=== PATIENT | female | born 1955 | race Caucasian/White ===

== ENCOUNTER 2021-08-05 08:28 | Inpatient (IN) ==
[2021-08-05 08:33] VITALS: BMI 19.0
[2021-08-05 08:50] LABS: ABG HCO3 21.8 mmol/L (22-26)
[2021-08-05 08:51] LABS: ABG ALLEN TEST POS
--- NOTE | 2021-08-05 08:57 | DR.SOBA ---
HPI Time Seen Time Seen by Provider: 08/05/21 08:57 Primary Care Physician Primary Care Physician: KAYLI HPI Comment HPI Comment: PATIENT IS 66YR OLD FEMALE IN ER WITH INCREASING SOB TIMES ONE WEEK. STARTED AFTER STRESS TEST WAS DONE. TODAY IN HER DOCTORS OFFICE, O2 SAT WAS LOW. SHE WAS SENT TO ER. PATIENT HAVE CHEST TIGHTNESS. PATIENT HAVE HISTORY OF COPD AND CHF. Complaints Chief Complaint Doctors Comments: INCREASING SOB TIMES ONE WEEK. Chief Complaint:: PT C/O SHORTNESS OF BREATH. PATIENT STATES SHE HAD A STRESS TEST LAST WEEK AND SHE HAS BEEN HAVING SHORTNESS OF BREATH SINCE. PATIENT STATES SHE WAS SENT OVER FROM PCP BECAUSE OF HAVING LOW SPO2. PATIENT STATES SHE WAS SCHEDULED FOR ECHO TODAY. COVID-19 Coronavirus risk:travel/contact w/high risk person: No Has patient experienced Coronavirus symptoms: No Reviewed Nurses Notes Reviewed: Yes Source History Provided: Patient Mode of Arrival Mode of Arrival: Ambulatory Timing Onset of Chief Complaint: 07/29/21 Duration Duration: Days Context Onset:: At Rest History of:: COPD and CHF Currently on:: Inhaled Bronchodilators Prehospital Care:: Injected B2 Modifying Factors Worsens:: Exertion and Lying Flat Improves:: Rest and Sitting Up Associated Signs and Symptoms Associated Signs and Symptoms: Wheeze, Cough, Nasal Congestion and Chest Pain If Chest Pain Quality: Pleuritic Location: Substernal If Cough Cough: Nonproductive PMH PMH Past Medical History: Yes Past Medical History: Anxiety, CHF, COPD, Dyslipidemia, Hypertension and [place] Past Medical History Comment: RLS, Past Surgical History: Yes Surgical History: Hysterectomy Past Surgical History Comment: EYE SURGERY Family History History of Family Medical Conditions: No Social History Does any household member use tobacco: No Alcohol Use: None Do you use any recreational Drugs:: No Lives With: Family Lives Where: Home Travel Risk Coronavirus risk:travel/contact w/high risk person: No Has patient experienced Coronavirus symptoms: No Infectious screening In the last 2 months have you had wt loss of >10#?: NO Have you had fever, night sweats or hemotysis?: No Have you traveled outside the country in the last 6 months?: No Isolation: Standard ROS Review of Systems Constitutional: See HPI, Weakness and Fatigue; negative Fever Eyes: No Symptoms Reported and See HPI ENTM: See HPI, Nose Discharge and Nose Congestion Respiratoy: See HPI, Non-Productive Cough, Short of Breath and Wheezing Cardiovascular: No Symptoms Reported, See HPI and Chest Pain Gastrointestinal/Abdominal: No Symptoms Reported and See HPI; negative Abdominal Pain, Diarrhea and Vomiting Genitourinary: No Symptoms Reported and See HPI; negative Dysuria, Frequency and Hematuria Neurological: See HPI and Weakness; negative Headache and Dizziness Musculoskeletal: No Symptoms Reported and See HPI; negative Back Pain and Muscle Pain Integumentary: No Symptoms Reported and See HPI; negative Change in Color, Rash and Juandice Hematologic/Lymphatic: No Symptoms Reported and See HPI; negative Easy Bruising Endocrine: No Symptoms Reported and See HPI; negative Increased Thirst and Increased Urine Psychiatric: No Symptoms Reported and See HPI All Other Systems: Reviewed and Negative PE Vital Signs Vitals: Temperature 98.8 F Pulse Rate 103 Respiratory Rate 33 Blood Pressure 111/58 O2 Sat by Pulse Oximetry 96 General Limitations: No Limitations General Appearance: Alert and In Distress Head Head Exam: Normal Inspection, Atraumatic and Normocephalic Eyes Eye exam: Normal Appearance; negative Scleral Icterus and Conjunctival Injection ENT ENT Exam: Normal Exam, Normal Oropharynx, Normal External Ear Exam and TM's Normal Bilaterally Neck Neck Exam: Normal Inspection and Trachea Midline; negative Tenderness and Lymphadenopathy Chest Chest Inspection: Normal Inspection and Symmetric Chest Wall Rise; negative Tenderness Respiratory Respiratory Exam: Normal Lung Sounds Bilat; negative Accessory Muscle Use, Chest Wall Tenderness and Respiratory Distress Respiratory Exam: Bilateral: Rhonchi and Lower: Rhonchi Cardiovascular Cardiovascular Exam: Regular Rate, Normal Rhythm and Normal Heart Sounds; negative Systolic Murmur and Diastolic Murmur Abdominal Exam Abdominal Exam: Normal Inspection, Normal Bowel Sounds and Soft; negative Tenderness Extremities Extremities Exam: Normal Inspection and Normal Capillary Refill Back Back Exam: Normal Inspection; negative (R) CVA Tenderness and (L) CVA Tenderness Neurologic Neurological Exam: Alert and Oriented X3; negative Motor Sensory Deficit Psychiatric Psychiatric Exam: Normal Affect and Normal Mood Skin Skin Exam: Warm, Dry, Intact and Normal Color MDM Differential Diagnosis Differential Diagnosis: Bronchitis, CHF, COPD, Hyponatremia, Mycardial Infarction, Pneumonia, Pneumothorax, Respiratory Insufficiency, Sinusitis and URI COURSE Treatment Treatment: SEE ORDERS. PATIENT IN ER WITH INCREASING SOB AND COUGH. HAD STESS TEST DONE LACT WEEK AND IS HAVING SOB SINCE. GETTING WORSE. O2 SAT WAS LOW IN PCP OFFICE AND WAS SENT TO ER. XRAY REPORT INDICATE PNEUMONIA WITH HYPOXIA. SHE IS BEING AGMITTED TO HOSPITAL FOR FURTHER MANAGEMENT. CEFTAZIDINE IGM IVPB IN ER. Consultation Consultation Comments: DISCUSSED PATIENT WITH DR. ARAIZA. HE WILL ADMIT PATIENT. Education/Counseling Education/Counseling: Patient Educated On: Diagnosis ROR Labs Reviewed Laboratory Results Reviewed?: Yes Result Diagrams: 08/05/21 09:00 08/05/21 09:00 Laboratory: WBC 10.2 X10^3/uL (3.6-10.0) H 08/05/21 09:00 RBC 4.04 X10^6/uL (3.5-5.4) 08/05/21 09:00 Hgb 12.4 g/dL (12.0-16.0) 08/05/21 09:00 Hct 35.5 % (36.0-47.0) L 08/05/21 09:00 MCV 87.7 fL (80.0-100.0) 08/05/21 09:00 MCH 30.7 pg (27.0-34.0) 08/05/21 09:00 MCHC 35.0 g/dL (33.0-35.0) 08/05/21 09:00 RDW 12.8 % (11.6-16.5) 08/05/21 09:00 Plt Count 396 X10^3/uL (150.0-450.0) 08/05/21 09:00 MPV 7.0 fL (7.4-11.0) L 08/05/21 09:00 Neut % (Auto) 81.6 % (42.0-75.0) H 08/05/21 09:00 Lymph % (Auto) 5.9 % (21.0-51.0) L 08/05/21 09:00 [place] % (Auto) 11.2 % (0.0-13.0) 08/05/21 09:00 Eos % (Auto) 0.8 % (0.9-2.9) L 08/05/21 09:00 Baso % (Auto) 0.5 % (0.2-1.0) 08/05/21 09:00 Neut # (Auto) 8.3 x10^3/uL (2.2-4.8) H 08/05/21 09:00 Lymph # (Auto) 0.6 X10^3/uL (1.3-2.9) L 08/05/21 09:00 [place] # (Auto) 1.1 x10^3/uL (0.3-0.8) H 08/05/21 09:00 Eos # (Auto) 0.1 x10^3/uL (0.0-0.2) 08/05/21 09:00 Baso # (Auto) 0.0 X10^3/uL (0.0-0.1) 08/05/21 09:00 Absolute Nucleated RBC 0.1 /100WBC 08/05/21 09:00 PT 13.6 SECONDS (11.8-14.3) 08/05/21 09:00 INR Target Range - 08/05/21 09:00 INR 1.10 (0.8-1.3) 08/05/21 09:00 APTT 35.3 SECONDS (22.9-36.5) 08/05/21 09:00 PTT Comment - 08/05/21 09:00 Sample Site Rr 08/05/21 08:45 ABG pH 7.470 (7.35-7.45) H 08/05/21 08:45 ABG pCO2 30.0 mmHg (35.0-45.0) L 08/05/21 08:45 ABG pO2 54.0 mmHg (80.0-100.0) L 08/05/21 08:45 ABG HCO3 21.8 mmol/L (22-26) L 08/05/21 08:45 ABG O2 Saturation 90.0 % (90-100) 08/05/21 08:45 ABG Base Excess -1.0 mmol/L (-2.0-2.0) 08/05/21 08:45 Jose Juan Test Pos 08/05/21 08:45 A-a Gradient 58.0 mmHg 08/05/21 08:45 FiO2 21.0 08/05/21 08:45 Blood Gas Comments Wes well cb 08/05/21 08:45 Sodium 131 mmol/L (136-145) L 08/05/21 09:00 Corrected Sodium TNP 08/05/21 09:00 Potassium 4.0 mmol/L (3.5-5.1) 08/05/21 09:00 Chloride 95 mmol/L (98-107) L 08/05/21 09:00 Carbon Dioxide 24.5 mmol/L (21-32) 08/05/21 09:00 BUN 10 mg/dL (7-18) 08/05/21 09:00 Creatinine 0.85 mg/dL (0.55-1.02) 08/05/21 09:00 Est GFR (MDRD) Af Amer > 60 (>60) 08/05/21 09:00 Est GFR (MDRD) Non-Af > 60 (>60) 08/05/21 09:00 Glucose 101 mg/dL (65-99) H 08/05/21 09:00 Calcium 9.3 mg/dL (8.5-10.1) 08/05/21 09:00 Corrected Calcium 10.3 mg/dL (8.5-10.1) H 08/05/21 09:00 Magnesium 2.0 mg/dL (1.7-2.9) 08/05/21 09:00 Total Bilirubin 0.60 mg/dL (0.2-1.0) 08/05/21 09:00 AST 17 Units/L (15-37) 08/05/21 09:00 ALT 13 Units/L (12-78) 08/05/21 09:00 Alkaline Phosphatase 81 Units/L (46-116) 08/05/21 09:00 Creatine Kinase 42 Units/L (26-192) 08/05/21 09:00 CK-MB (CK-2) < 1.0 ng/mL (0-4.0) 08/05/21 09:00 CK/CKMB % Calc 2.4 % (<4) 08/05/21 09:00 Troponin I < 0.02 ng/mL (0-1.5) 08/05/21 09:00 B-Natriuretic Peptide 61.6 pg/mL (0-79) 08/05/21 09:00 Total Protein 7.4 g/dL (6.4-8.2) 08/05/21 09:00 Albumin 2.8 g/dL (3.4-5.0) L 08/05/21 09:00 Globulin 4.6 g/dL (2.5-4.5) H 08/05/21 09:00 Albumin/Globulin Ratio 0.6 Ratio (1.1-2.1) L 08/05/21 09:00 SARS-CoV-2 (PCR) Negative (NEGATIVE) 08/05/21 10:06 Influenza Type A (PCR) Negative (NEGATIVE) 08/05/21 10:06 Influenza Type B (PCR) Negative (NEGATIVE) 08/05/21 10:06 RSV (PCR) Negative (NEGATIVE) 08/05/21 10:06 XRAY XRAY Interpreted by: Radiologist (REPORT NOTED AND DISCUSSED WITH PATIENT.) and Self EKG Rate: 103 [place]: Normal Rhythm: NSR and PVCs Block: None Hypertrophy: None ST: Old, Ischemia and Infarct Opioid Opioid Risk Tool Age (Vinh box if 16-45): No History of Preadolescent Sexual Abuse: No Total: 0 Total Score Risk Category: Low Risk Copyright: Michele GUARDADO predicting aberrant behaviors Diagnosis Discharge Problem: Pneumonia Qualifiers: Pneumonia type: due to unspecified organism Laterality: bilateral Lung location: unspecified part of lung Qualified Code(s): J18.9 - Pneumonia, unspec ified organism COPD (chronic obstructive pulmonary disease) Qualifiers: COPD type: COPD with acute exacerbation Qualified Code(s): J44.1 - Chronic obstructive pulmonary disease with (acute) exacerbation Instructions Forms: Precautions for COVID19 [facility] Social Distancing
[2021-08-05 09:17] LABS: BASOPHILS % (AUTO) 0.5 % (0.2-1.0); EOSINOPHILS # (AUTO) 0.1 x10^3/uL (0.0-0.2); EOSINOPHILS % (AUTO) 0.8 % (0.9-2.9); HEMATOCRIT 35.5 % (36.0-47.0); HEMOGLOBIN 12.4 g/dL (12.0-16.0); LYMPHOCYTES # (AUTO) 0.6 X10^3/uL (1.3-2.9); LYMPHOCYTES % (AUTO) 5.9 % (21.0-51.0); MEAN CORPUSCULAR HEMOGLOBIN 30.7 pg (27.0-34.0); MEAN CORPUSCULAR VOLUME 87.7 fL (80.0-100.0); MONOCYTES # (AUTO) 1.1 x10^3/uL (0.3-0.8); MONOCYTES % (AUTO) 11.2 % (0.0-13.0); NEUTROPHILS # (AUTO) 8.3 x10^3/uL (2.2-4.8); NEUTROPHILS % (AUTO) 81.6 % (42.0-75.0); PLATELET COUNT 396 X10^3/uL (150.0-450.0); RED BLOOD COUNT 4.04 X10^6/uL (3.5-5.4); RED CELL DISTRIBUTION WIDTH 12.8 % (11.6-16.5); WHITE BLOOD COUNT 10.2 X10^3/uL (3.6-10.0)
--- NOTE | 2021-08-05 09:19 | RAD ---
HISTORYSOBSTUDYCHEST, 1 VIEWCOMPARISONNoneTECHNIQUEAP view of the chestFINDINGSCardiac and mediastinal contours are within normal limits. Lungs are hyperexpanded with lucencies, airspace, and interstitial opacities. Airspace opacity particularly in the peripheral right upper lobe. Blunted costophrenic sulci. No pneumothorax.IMPRESSIONSevere COPD. Airspace and interstitial opacities bilaterally are nonspecific but may represent a combination of chronic interstitial disease and pneumonia. Neoplasm is not excluded, and CT chest is recommended if there is clinical concern. At a minimum, follow-up imaging to document resolution of airspace opacities. Blunted costophrenic sulci can be seen with small pleural effusions and pleural scarring.Electronically signed by: Tadeo Chavez (Aug 05, 2021 09:18:16)
[2021-08-05 09:53] LABS: ALANINE AMINOTRANSFERASE 13 Units/L (12-78); ALBUMIN 2.8 g/dL (3.4-5.0); ALKALINE PHOSPHATASE 81 Units/L (46-116); ASPARTATE AMINO TRANSFERASE 17 Units/L (15-37); BLOOD UREA NITROGEN 10 mg/dL (7-18); CALCIUM 9.3 mg/dL (8.5-10.1); CARBON DIOXIDE 24.5 mmol/L (21-32); CHLORIDE 95 mmol/L (98-107); CKMB % 2.4 % (<4); COR CA(FOR HYPOALB) 10.3 mg/dL (8.5-10.1); CREATINE KINASE 42 Units/L (26-192); CREATINE KINASE MB < 1.0 ng/mL (0-4.0); CREATININE 0.85 mg/dL (0.55-1.02); SODIUM 131 mmol/L (136-145); TOTAL PROTEIN 7.4 g/dL (6.4-8.2); TROPONIN I < 0.02 ng/mL (0-1.5); eGFR NON BLACK RACES > 60 (>60)
[2021-08-05] MEDS ORDERED: FORTAZ or TAZICEF VIAL INJ 1 G in NS 100 ML IV + SPIKE MINIBAG* 100 ML IV ONE (10:23)
[2021-08-05] MEDS ORDERED: FORTAZ or TAZICEF VIAL INJ ONE (10:29)
[2021-08-05] MEDS ORDERED: NS 100 ML IV + SPIKE MINIBAG* 100 ML IV ONE (10:30)
[2021-08-05] MEDS ORDERED: LASIX PO PRN (11:50)
[2021-08-05] MEDS: FORTAZ or TAZICEF VIAL INJ 1 G in NS 100 ML IV + SPIKE MINIBAG* 100 ML IV SCH ×3 (11:51→22:00)
--- NOTE | 2021-08-05 12:22 | DR.H&P ---
H&P - History & Physical for Day of: H&P Date: 08/05/21 - Chief Complaint Chief Complaint: SHORTNESS OF BREATH, LOW OXYGEN SATURATIONS - History of Present Illness History of Present Illness: IS A 66 YEAR OLD PATIENT OF [place]. SHE PRESENTED TO THE ER WITH COMPLAINTS OF INCREASING SHORTNESS OF BREATH AND LOW OXYGEN SATURATIONS. PATIENT REPORTS HAVING A STRESS TEST LAST WEEK AND HAS BEEN SHORT OF BREATH SINCE. SHE WAS SCHEDULED FOR AN ECHO THIS MORNING, BUT HER OXYGEN SATURATIONS WERE 83% IN THE OFFICE. HER PMH INCLUDES ANXIETY, CHF, COPD, DYSLIPIDEMIA, HTN, TN, AND HYSTERECTOMY. EXAMINATION, REVEALED SCATTERED WHEEZING TO LUNG LOPEZ. ON ARRIVAL TO THE ER, VITALS WERE 98.8-107-20-88%-122/58. LABS WERE OBTAINED. ABNORMAL LAB VALUES INCLUDE THE FOLLOWING: WBC 10.2, HCT 35.5, SODIUM 131, CHLORIDE 95, GLUCOSE 101, ALBUMIN 2.8, GLOBULIN 4.6. COVID, INFLUENZA, AND RSV NEGATIVE. AN ABG WAS OBTAINED AND REVEALED: PH 7.470, PC02 30, P02 54, HC03 21.8, 02 SAT 90, A-A GRADIENT 58, FI02 21. BLOOD CULTURES WERE SET UP. A CHEST XRAY WAS OBTAINED AND REVEALED: Severe COPD. Airspace and interstitial opacities bilaterally are nonspecific but may represent a combination of chronic interstitial disease and pneumonia. Neoplasm is not excluded, and CT chest is recommended if there is clinical concern. At a minimum, follow-up imaging to document resolution of airspace opacities. Blunted costophrenic sulci can be seen with small pleural effusions and pleural scarring. IN THE ER, SHE WAS GIVEN FORTAZ 1G IV X 1 DOSE. SHE WAS ADMITTED TO THE HOSPTIAL FOR FURTHER EVALUATION AND TREATMETN OF PNEUMONIA AND COPD EXACERBATION. SHE WAS STARTED ON FORTAZ 1G IV Q8H, LEVAQUIN 500MG IV DAILY, DUONEBS Q6H, TUSSIONEX 5ML PO Q12H PRN, ROBITUSSIN DM 10ML PO QID, VSL 2 CAPS PO DAILY, AND HER HOME MEDICATIONS OF ASPIRIN, CELEXA, LASIX, CLARITIN, TOPROL XL, SINGULAIR, DAILIRESP, ZOCOR, AND ALDACTONE WERE RESUMED. OTHERWISE, WE PLAN TO FOLLOW UP WITH AM LABS AND CHEST XRAY CONTINUE TO MONITOR. TIME SPENT ON CLINICAL ASSESSMENT, REVIEWING LABS AND IMAGING, DECISION MAKING, AND DOCUMENTATION GREATER THAN 75 MINUTES. - Past Medical History Past Medical History: TN, Hypertension, Dyslipidemia, Anxiety, COPD, CHF - Past Surgical History Surgical History: Hysterectomy - Social History Does any household member use tobacco: No Alcohol Use: None - Medications Home Medications: iodine Adverse Reaction (Verified 08/05/21 08:28) CONTINUE taking the following medications aspirin [Aspir-Low] 81 mg PO HS 08/05/21 [History] citalopram 10 mg PO DAILY 08/05/21 [History] furosemide 20 mg PO QAM PRN 08/05/21 [History] loratadine 10 mg PO DAILY 08/05/21 [History] metoprolol succinate 25 mg PO DAILY 08/05/21 [History] montelukast 10 mg PO QHS 08/05/21 [History] roflumilast [Daliresp] 500 mcg PO DAILY 08/05/21 [History] simvastatin 40 mg PO QHS 08/05/21 [History] spironolactone 25 mg PO DAILY 08/05/21 [History] - Review of Systems Constitutional: Weakness Eyes: No Symptoms Reported ENT: No Symptoms Reported Respiratory: See HPI, Shortness of Breath, Pleuritic Pain Cardiovascular: No Symptoms Reported Gastrointestinal: No Symptoms Reported Genitourinary: No Symptoms Reported Musculoskeletal: No Symptoms Reported Skin: No Symptoms Reported Neurological: Weakness - Physical Exam Vital Signs: Temperature 98.8 F Pulse Rate 99 Respiratory Rate 23 Blood Pressure 116/57 O2 Sat by Pulse Oximetry 96 Oriented: Normal Eyes: Normal Ear: Normal Nose: Normal Throat: Normal Respiratory: Diminished Throughout, Wheezes Throughout Cardiovascular: Normal : Normal Auscultation: Bowel Sounds: Normal Palpation: Normal Tenderness: Normal Skin: Normal Musculoskeletal: Normal Psychiatric: Normal Mood Description: Calm Affect: Normal Speech Pattern: Clear - Assessment/Plan (1) Pneumonia Qualifiers: Pneumonia type: due to unspecified organism Laterality: bilateral Lung location: unspecified part of lung Qualified Code(s): J18.9 - Pneumonia, unspecified organism Status: Acute Plan: ADMIT, FORTAZ 1G IV Q8H, LEVAQUIN 500MG IV DAILY, DUONEBS Q6H, TUSSIONEX 5ML PO Q12H PRN, ROBITUSSIN DM 10ML PO QID, VSL 2 CAPS PO DAILY, AND HER HOME MEDICATIONS OF ASPIRIN, CELEXA, LASIX, CLARITIN, TOPROL XL, SINGULAIR, DAILIRESP, ZOCOR, AND ALDACTONE WERE RESUMED. (2) COPD (chronic obstructive pulmonary disease) Qualifiers: COPD type: COPD with acute exacerbation Qualified Code(s): J44.1 - Chronic obstructive pulmonary disease with (acute) exacerbation Status: Acute (3) Hypoxia Status: Acute - Allergies Allergies/Adverse Reactions: Allergies Allergy/AdvReac Type Severity Reaction Status Date / Time iodine AdvReac Verified 08/05/21 08:28
[2021-08-05] MEDS: LEVAQUIN PREMIX IV 500 MG 500 MG/100 ML BAG IV SCH (13:18)
[2021-08-05] MEDS: ROBITUSSIN DM PO SCH ×3 (13:19→21:00)
[2021-08-05] MEDS: SINGULAIR TAB 10 MG PO SCH (13:23)
[2021-08-05] MEDS ORDERED: NS 100 ML IV 100 ML IV PRN (14:35)
[2021-08-05 15:24] LABS: CKMB % 2.4 % (<4); CREATINE KINASE 41 Units/L (26-192); CREATINE KINASE MB < 1.0 ng/mL (0-4.0); TROPONIN I < 0.02 ng/mL (0-1.5)
[2021-08-05] MEDS: DUONEB 0.5 MG/3 MG (3 mL) NEB SCH ×2 (17:00→17:16)
[2021-08-05] MEDS: ZOCOR TAB 40 MG PO SCH (21:00)
[2021-08-05] MEDS: ASPIRIN EC 81 MG PO SCH (22:10)
[2021-08-06] MEDS: DUONEB 0.5 MG/3 MG (3 mL) NEB SCH ×2 (00:15→05:25)
[2021-08-06] MEDS: TUSSIONEX PENNKINETIC SUSP PO PRN (01:03)
[2021-08-06 04:53] LABS: BASOPHILS # (AUTO) 0.1 X10^3/uL (0.0-0.1); BASOPHILS % (AUTO) 0.9 % (0.2-1.0); EOSINOPHILS # (AUTO) 0.1 x10^3/uL (0.0-0.2); EOSINOPHILS % (AUTO) 2.2 % (0.9-2.9); HEMATOCRIT 32.5 % (36.0-47.0); HEMOGLOBIN 11.6 g/dL (12.0-16.0); LYMPHOCYTES # (AUTO) 0.6 X10^3/uL (1.3-2.9); LYMPHOCYTES % (AUTO) 9.8 % (21.0-51.0); MEAN CORPUSCULAR HEMOGLOBIN 31.1 pg (27.0-34.0); MEAN CORPUSCULAR HGB CONC 35.8 g/dL (33.0-35.0); MEAN CORPUSCULAR VOLUME 86.9 fL (80.0-100.0); MEAN PLATELET VOLUME 7.2 fL (7.4-11.0); MONOCYTES # (AUTO) 0.9 x10^3/uL (0.3-0.8); MONOCYTES % (AUTO) 14.8 % (0.0-13.0); NEUTROPHILS # (AUTO) 4.6 x10^3/uL (2.2-4.8); NEUTROPHILS % (AUTO) 72.3 % (42.0-75.0); PLATELET COUNT 362 X10^3/uL (150.0-450.0); RED BLOOD COUNT 3.74 X10^6/uL (3.5-5.4); RED CELL DISTRIBUTION WIDTH 13.2 % (11.6-16.5); WHITE BLOOD COUNT 6.3 X10^3/uL (3.6-10.0)
[2021-08-06 05:08] LABS: ALANINE AMINOTRANSFERASE 12 Units/L (12-78); ALBUMIN 2.4 g/dL (3.4-5.0); ALKALINE PHOSPHATASE 75 Units/L (46-116); ASPARTATE AMINO TRANSFERASE 16 Units/L (15-37); BLOOD UREA NITROGEN 8 mg/dL (7-18); CALCIUM 8.9 mg/dL (8.5-10.1); CARBON DIOXIDE 24.6 mmol/L (21-32); CHLORIDE 99 mmol/L (98-107); COR CA(FOR HYPOALB) 10.2 mg/dL (8.5-10.1); SODIUM 134 mmol/L (136-145); TOTAL PROTEIN 6.7 g/dL (6.4-8.2); eGFR NON BLACK RACES > 60 (>60)
[2021-08-06] MEDS: FORTAZ or TAZICEF VIAL INJ 1 G in NS 100 ML IV + SPIKE MINIBAG* 100 ML IV SCH ×3 (05:32→21:32)
--- NOTE | 2021-08-06 07:10 | RAD ---
HISTORYSOBSTUDYCHEST, 1 [id number]/26/2021.TECHNIQUEAP view of the chestFINDINGSCardiac and mediastinal contours are within normal limits. Stable lung hyper expansion, lucencies, and scattered interstitial and airspace opacities. Airspace opacities are worst in the peripheral upper lobes and right infrahilar location. Blunting of the costophrenic sulcus, particularly on the right, remains. No pneumothorax.IMPRESSIONNo significant change.Electronically signed by: Tadeo Chavez (Aug 06, 2021 07:09:05)
[2021-08-06] MEDS: ALDACTONE TAB 25 MG PO SCH (09:27)
[2021-08-06] MEDS: CELEXA PO SCH (09:27)
[2021-08-06] MEDS: CLARITIN PO SCH (09:28)
[2021-08-06] MEDS: DALIRESP PO SCH (09:28)
[2021-08-06] MEDS: LEVAQUIN PREMIX IV 500 MG 500 MG/100 ML BAG IV SCH (09:29)
[2021-08-06] MEDS: SINGULAIR TAB 10 MG PO SCH (09:29)
[2021-08-06] MEDS: ROBITUSSIN DM PO SCH ×4 (09:29→20:31)
[2021-08-06] MEDS: TOPROL XL PO SCH (09:29)
[2021-08-06] MEDS: VSL#3 PO SCH (09:29)
[2021-08-06] MEDS: LOVENOX INJ 40 MG SYR SC SCH (10:32)
--- NOTE | 2021-08-06 12:52 | PCM.PROG ---
Progress Note - Progress Note for Day of Date of Exam: 08/06/21 - Subjective Subjective: WAS ADMITTED FOR TREATMENT OF COPD EXACERBATION, PNEUMONIA, AND HYPOXIA. TODAY, SHE IS ALERT AND ORIENTED, SITTING UP IN BED ON MORNING ROUNDS. SHE CONTINUES WITH COMPLAINTS OF SHORTNESS OF BREATH TODAY, BUT REPORTS SLIGHT IMPROVEMENT IN SYMPTOMS SINCE ADMISSION. ON EXAMINATION, SHE IS SLIGHTLY TACHYCARDIC WITH HR 110. BILATERAL LUNGS ARE NOTED WITH SCATTERED WHEEZING THROUGHOUT. ABDOMEN IS ROUND, SOFT, AND NON-TENDER WITH NORMAL BOWEL SOUNDS NOTED IN ALL QUADRANTS. HER VITALS THIS MORNING ARE: 98.5-110-22-90%RA-112/58. LABS WERE OBTAINED. ABNORMAL LAB VALUES INCLUDE THE FOLLOWING: HGB 11.6, HCT 32.5, SODIUM 134, GLUCOSE 101, ALBUMIN 2.4. CARDIAC ENZYMES ARE WITHIN NORMAL LI MITS. BLOOD AND SPUTUM CULTURES ARE PENDING. A CHEST XRAY WAS OBTAINED AND REVEALED: Cardiac and mediastinal contours are within normal limits. Stable lung hyper expansion, lucencies, and scattered interstitial and airspace opacities. Airspace opacities are worst in the peripheral upper lobes and right infrahilar location. Blunting of the costophrenic sulcus, particularly on the right, remains. No pneumothorax. SHE IS CURRENTLY RECEIVING FORTAZ 1G IV Q8H, LEVAQUIN 500MG IV DAILY, DUONEBS Q6H, TUSSIONEX 5ML PO Q12H PRN, ROBITUSSIN DM 10ML PO QID, VSL 2 CAPS PO DAILY, AND HER HOME MEDICATIONS OF ASPIRIN, CELEXA, LASIX, CLARITIN, TOPROL XL, SINGULAIR, DAILIRESP, ZOCOR, AND ALDACTONE WERE RESUMED. WE WILL CONTINUE WITH CURRENT PLAN OF CARE TODAY. OTHERWISE, WE WILL FOLLOW UP WITH AM LABS AND CHEST XRAY AND CONTINUE TO MONITOR. TIME SPENT ON CLINICAL ASSESSMENT, REVIEWING LABS AND IMAGING, DECISION MAKING, AND DOCUMENTATION GREATER THAN 45 MINUTES. - Past Medical Family Social History Past Med/Fam/Surg Hx: No changes since H&P Allergies: Allergies iodine Adverse Reaction (Verified 08/05/21 08:28) - Review of Systems ROS: No change since H&P - Vital Signs and I&O's Vital Signs: Temperature 97.9 F Pulse Rate [Left Radial] 128 Pulse Rate 89 Respiratory Rate 26 Blood Pressure [Right Arm] 113/61 Blood Pressure 116/57 O2 Sat by Pulse Oximetry 90 Intake and Output: Intake & Output 08/04/21 08/05/21 08/06/21 08/07/21 11:59 11:59 11:59 11:59 Intake Total 1662 / 1662 Balance 1662 / 1662 - Physical Exam Oriented: Normal Eyes: Normal Ear: Normal Nose: Normal Throat: Normal Respiratory: Diminished Cardiovascular: Normal : Normal Auscultation: Bowel Sounds: Normal Palpation: Normal Tenderness: Normal Skin: Normal Musculoskeletal: Normal Psychiatric: Normal Mood Description: Calm Affect: Normal Speech Pattern: Clear, Appropriate - Laboratory and Diagnostics Result Diagrams: 08/06/21 04:15 08/06/21 04:15 Labs: 08/05/21 20:52 Sputum - Expectorated Sputum - Final Laboratory WBC 6.3 X10^3/uL (3.6-10.0) 08/06/21 04:15 RBC 3.74 X10^6/uL (3.5-5.4) 08/06/21 04:15 Hgb 11.6 g/dL (12.0-16.0) L 08/06/21 04:15 Hct 32.5 % (36.0-47.0) L 08/06/21 04:15 MCV 86.9 fL (80.0-100.0) 08/06/21 04:15 MCH 31.1 pg (27.0-34.0) 08/06/21 04:15 MCHC 35.8 g/dL (33.0-35.0) H 08/06/21 04:15 RDW 13.2 % (11.6-16.5) 08/06/21 04:15 Plt Count 362 X10^3/uL (150.0-450.0) 08/06/21 04:15 MPV 7.2 fL (7.4-11.0) L 08/06/21 04:15 Neut % (Auto) 72.3 % (42.0-75.0) 08/06/21 04:15 Lymph % (Auto) 9.8 % (21.0-51.0) L 08/06/21 04:15 [place] % (Auto) 14.8 % (0.0-13.0) H 08/06/21 04:15 Eos % (Auto) 2.2 % (0.9-2.9) 08/06/21 04:15 Baso % (Auto) 0.9 % (0.2-1.0) 08/06/21 04:15 Neut # (Auto) 4.6 x10^3/uL (2.2-4.8) 08/06/21 04:15 Lymph # (Auto) 0.6 X10^3/uL (1.3-2.9) L 08/06/21 04:15 [place] # (Auto) 0.9 x10^3/uL (0.3-0.8) H 08/06/21 04:15 Eos # (Auto) 0.1 x10^3/uL (0.0-0.2) 08/06/21 04:15 Baso # (Auto) 0.1 X10^3/uL (0.0-0.1) 08/06/21 04:15 Absolute Nucleated RBC 0.0 /100WBC 08/06/21 04:15 PT 13.6 SECONDS (11.8-14.3) 08/05/21 09:00 INR Target Range - 08/05/21 09:00 INR 1.10 (0.8-1.3) 08/05/21 09:00 APTT 35.3 SECONDS (22.9-36.5) 08/05/21 09:00 PTT Comment - 08/05/21 09:00 Sample Site Rr 08/05/21 08:45 ABG pH 7.470 (7.35-7.45) H 08/05/21 08:45 ABG pCO2 30.0 mmHg (35.0-45.0) L 08/05/21 08:45 ABG pO2 54.0 mmHg (80.0-100.0) L 08/05/21 08:45 ABG HCO3 21.8 mmol/L (22-26) L 08/05/21 08:45 ABG O2 Saturation 90.0 % (90-100) 08/05/21 08:45 ABG Base Excess -1.0 mmol/L (-2.0-2.0) 08/05/21 08:45 Jose Juan Test Pos 08/05/21 08:45 A-a Gradient 58.0 mmHg 08/05/21 08:45 FiO2 21.0 08/05/21 08:45 Blood Gas Comments Wes well cb 08/05/21 08:45 Sodium 134 mmol/L (136-145) L 08/06/21 04:15 Corrected Sodium TNP 08/06/21 04:15 Potassium 4.0 mmol/L (3.5-5.1) 08/06/21 04:15 Chloride 99 mmol/L (98-107) 08/06/21 04:15 Carbon Dioxide 24.6 mmol/L (21-32) 08/06/21 04:15 BUN 8 mg/dL (7-18) 08/06/21 04:15 Creatinine 0.80 mg/dL (0.55-1.02) 08/06/21 04:15 Est GFR (MDRD) Af Amer > 60 (>60) 08/06/21 04:15 Est GFR (MDRD) Non-Af > 60 (>60) 08/06/21 04:15 Glucose 101 mg/dL (65-99) H 08/06/21 04:15 Calcium 8.9 mg/dL (8.5-10.1) 08/06/21 04:15 Corrected Calcium 10.2 mg/dL (8.5-10.1) H 08/06/21 04:15 Magnesium 2.0 mg/dL (1.7-2.9) 08/05/21 09:00 Total Bilirubin 0.40 mg/dL (0.2-1.0) 08/06/21 04:15 AST 16 Units/L (15-37) 08/06/21 04:15 ALT 12 Units/L (12-78) 08/06/21 04:15 Alkaline Phosphatase 75 Units/L (46-116) 08/06/21 04:15 Creatine Kinase 41 Units/L (26-192) 08/05/21 14:50 CK-MB (CK-2) < 1.0 ng/mL (0-4.0) 08/05/21 14:50 CK/CKMB % Calc 2.4 % (<4) 08/05/21 14:50 Troponin I < 0.02 ng/mL (0-1.5) 08/05/21 14:50 B-Natriuretic Peptide 61.6 pg/mL (0-79) 08/05/21 09:00 Total Protein 6.7 g/dL (6.4-8.2) 08/06/21 04:15 Albumin 2.4 g/dL (3.4-5.0) L 08/06/21 04:15 Globulin 4.3 g/dL (2.5-4.5) 08/06/21 04:15 Albumin/Globulin Ratio 0.6 Ratio (1.1-2.1) L 08/06/21 04:15 SARS-CoV-2 (PCR) Negative (NEGATIVE) 08/05/21 10:06 Influenza Type A (PCR) Negative (NEGATIVE) 08/05/21 10:06 Influenza Type B (PCR) Negative (NEGATIVE) 08/05/21 10:06 RSV (PCR) Negative (NEGATIVE) 08/05/21 10:06 - Plan (1) Pneumonia Status: Acute Qualifiers: Pneumonia type: due to unspecified organism Laterality: bilateral Lung location: unspecified part of lung Qualified Code(s): J18.9 - Pneumonia, unspecified organism Plan: FORTAZ 1G IV Q8H, LEVAQUIN 500MG IV DAILY, DUONEBS Q6H, TUSSIONEX 5ML PO Q12H PRN, ROBITUSSIN DM 10ML PO QID, VSL 2 CAPS PO DAILY, AND HER HOME MEDICATIONS OF ASPIRIN, CELEXA, LASIX, CLARITIN, TOPROL XL, SINGULAIR, DAILIRESP, ZOCOR, AND ALDACTONE WERE RESUMED. (2) COPD (chronic obstructive pulmonary disease) Status: Acute Qualifiers: COPD type: COPD with acute exacerbation Qualified Code(s): J44.1 - Chronic obstructive pulmonary disease with (acute) exacerbation (3) Hypoxia Status: Acute
[2021-08-06] MEDS ORDERED: XOPENEX 1.25 MG/3 ML NEBULE NEB SCH (13:00)
[2021-08-06] MEDS: XOPENEX 1.25 MG/3 ML NEBULE NEB SCH ×2 (13:05→20:15)
[2021-08-06] MEDS ORDERED: XOPENEX 1.25 MG/3 ML NEBULE NEB ONE (13:36)
[2021-08-06 15:53] LABS: CKMB % 2.5 % (<4); CREATINE KINASE 49 Units/L (26-192); CREATINE KINASE MB 1.2 ng/mL (0-4.0); TROPONIN I < 0.02 ng/mL (0-1.5)
[2021-08-06] MEDS: ZOCOR TAB 40 MG PO SCH (20:31)
[2021-08-06] MEDS: ASPIRIN EC 81 MG PO SCH (20:31)
[2021-08-07] MEDS: XOPENEX 1.25 MG/3 ML NEBULE NEB SCH ×4 (00:05→17:05)
[2021-08-07] MEDS ORDERED: VISTARIL PO PRN (04:56)
[2021-08-07] MEDS ORDERED: VISTARIL PO ONE (04:59)
[2021-08-07] MEDS: FORTAZ or TAZICEF VIAL INJ 1 G in NS 100 ML IV + SPIKE MINIBAG* 100 ML IV SCH ×3 (05:51→21:49)
[2021-08-07 06:26] LABS: BASOPHILS # (AUTO) 0.1 X10^3/uL (0.0-0.1); BASOPHILS % (AUTO) 1.1 % (0.2-1.0); EOSINOPHILS # (AUTO) 0.2 x10^3/uL (0.0-0.2); EOSINOPHILS % (AUTO) 3.4 % (0.9-2.9); HEMATOCRIT 33.6 % (36.0-47.0); HEMOGLOBIN 11.9 g/dL (12.0-16.0); LYMPHOCYTES # (AUTO) 0.6 X10^3/uL (1.3-2.9); LYMPHOCYTES % (AUTO) 10.5 % (21.0-51.0); MEAN CORPUSCULAR HEMOGLOBIN 31.1 pg (27.0-34.0); MEAN CORPUSCULAR HGB CONC 35.4 g/dL (33.0-35.0); MEAN CORPUSCULAR VOLUME 87.8 fL (80.0-100.0); MEAN PLATELET VOLUME 7.3 fL (7.4-11.0); MONOCYTES # (AUTO) 0.8 x10^3/uL (0.3-0.8); MONOCYTES % (AUTO) 13.8 % (0.0-13.0); NEUTROPHILS # (AUTO) 4.4 x10^3/uL (2.2-4.8); NEUTROPHILS % (AUTO) 71.2 % (42.0-75.0); PLATELET COUNT 420 X10^3/uL (150.0-450.0); RED BLOOD COUNT 3.82 X10^6/uL (3.5-5.4); RED CELL DISTRIBUTION WIDTH 13.1 % (11.6-16.5); WHITE BLOOD COUNT 6.1 X10^3/uL (3.6-10.0)
[2021-08-07 06:36] LABS: ALANINE AMINOTRANSFERASE 14 Units/L (12-78); ALBUMIN 2.6 g/dL (3.4-5.0); ALKALINE PHOSPHATASE 75 Units/L (46-116); ASPARTATE AMINO TRANSFERASE 18 Units/L (15-37); BLOOD UREA NITROGEN 6 mg/dL (7-18); CALCIUM 9.4 mg/dL (8.5-10.1); CHLORIDE 99 mmol/L (98-107); COR CA(FOR HYPOALB) 10.5 mg/dL (8.5-10.1); CREATININE 0.85 mg/dL (0.55-1.02); SODIUM 134 mmol/L (136-145); TOTAL PROTEIN 7.1 g/dL (6.4-8.2); eGFR NON BLACK RACES > 60 (>60)
--- NOTE | 2021-08-07 07:18 | RAD ---
HISTORYShortness of breathSTUDYChest AP [id number]/27/2021FINDINGSHear t size is normal. Dee are normal. Lungs are hyperinflated. Emphysematous changes and diffuse interstitial lung changes are again identified superimposed on which are alveolar infiltrates in the right upper lobe, right lower lobe, peripheral left midlung unchanged from the prior examination. No pleural effusions or pneumothoraces are identified. Bony thorax is unremarkable.IMPRESSIONEmphysematous COPD with likely chronic interstitial lung changesSuperimposed alveolar infiltrates right upper lobe, right lower lobe and peripherally in the left lung unchangedElectronically signed by: ALVIN ZHANG (Aug 07, 2021 07:16:46)
[2021-08-07] MEDS: ALDACTONE TAB 25 MG PO SCH (08:56)
[2021-08-07] MEDS: TOPROL XL PO SCH (08:57)
[2021-08-07] MEDS: SINGULAIR TAB 10 MG PO SCH (08:57)
[2021-08-07] MEDS: CLARITIN PO SCH (08:57)
[2021-08-07] MEDS: CELEXA PO SCH (08:57)
[2021-08-07] MEDS: DALIRESP PO SCH (08:57)
[2021-08-07] MEDS: VSL#3 PO SCH (08:58)
[2021-08-07] MEDS: LOVENOX INJ 40 MG SYR SC SCH (08:58)
[2021-08-07] MEDS: ROBITUSSIN DM PO SCH ×4 (08:58→20:45)
[2021-08-07] MEDS: LEVAQUIN PREMIX IV 500 MG 500 MG/100 ML BAG IV SCH (08:58)
[2021-08-07] MEDS: SOLU-Medrol 40 MG VIAL IVP SCH ×3 (10:25→21:49)
--- NOTE | 2021-08-07 10:35 | PCM.PROG ---
Progress Note - Progress Note for Day of Date of Exam: 08/07/21 - Subjective Subjective: WAS ADMITTED FOR TREATMENT OF COPD EXACERBATION, PNEUMONIA, AND HYPOXIA. TODAY, SHE IS ALERT AND ORIENTED, SITTING UP IN BED ON MORNING ROUNDS. SHE CONTINUES WITH COMPLAINTS OF SHORTNESS OF BREATH TODAY. NURSING STAFF REPORTS THAT HER OXYGEN SATURATIONS DROP TO THE 80s ON AMBULATION. HEART HEARTRATE ALSO INCREASES TO THE 130s-150s. ON EXAMINATION TODAY, SHE IS TACHYCARDIC WITH HR IN THE 120s. AFTER PATIENT WS BACK IN BED AND GIVEN A NEBULIZER TREATMENT, SATURATIONS INCREASED TO 97%. BILATERAL LUNGS ARE NOTED WITH SCATTERED WHEEZING THROUGHOUT. ABDOMEN IS ROUND, SOFT, AND NON-TENDER WITH NORMAL BOWEL SOUNDS NOTED IN ALL QUADRANTS. HER VITALS THIS MORNING ARE: 98.1-120-20-91%-117/65. LABS WERE OBTAINED. ABNORMAL LAB VALUES INCLUDE THE FOLLOWING: HGB 11.9, HCT 33.6, SODIUM 134, BUN 6, GLUCOSE 106, ALBUMIN 2.6. CARDIAC ENZYMES ARE WITHIN NORMAL LIMITS. BLOOD AND SPUTUM CULTURES ARE PENDING. 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 Superimposed alveolar infiltrates right upper lobe, right lower lobe and peripherally in the left lung unchanged. SHE IS CURRENTLY RECEIVING FORTAZ 1G IV Q8H, LEVAQUIN 500MG IV DAILY, DUONEBS Q6H, TUSSIONEX 5ML PO Q12H PRN, ROBITUSSIN DM 10ML PO QID, VSL 2 CAPS PO DAILY, AND HER HOME MEDICATIONS OF ASPIRIN, CELEXA, LASIX, CLARITIN, TOPROL XL, SINGULAIR, DAILIRESP, ZOCOR, AND ALDACTONE WERE RESUMED. WE WILL CONTINUE WITH CURRENT PLAN OF CARE TODAY. WE WILL ALSO ADD SOLU-MEDROL 40MG IV Q8H AND OBTAIN AN ECHO. OTHERWISE, WE WILL FOLLOW UP WITH AM LABS AND CHEST XRAY AND CONTINUE TO MONITOR. TIME SPENT ON CLINICAL ASSESSMENT, REVIEWING LABS AND IMAGING, DECISION MAKING, AND DOCUMENTATION GREATER THAN 45 MINUTES. - Past Medical Family Social History Past Med/Fam/Surg Hx: No changes since H&P Allergies: Allergies iodine Adverse Reaction (Verified 08/05/21 08:28) - Review of Systems ROS: No change since H&P - Vital Signs and I&O's Vital Signs: Temperature 98.1 F Pulse Rate [Left Radial] 120 Pulse Rate 129 Respiratory Rate 20 Blood Pressure [Right Arm] 117/65 Blood Pressure 116/57 O2 Sat by Pulse Oximetry 91 Intake and Output: Intake & Output 08/04/21 08/05/21 08/06/21 08/07/21 11:59 11:59 11:59 11:59 Intake Total 1662 / 1662 1550 / 1550 Balance 1662 / 1662 1550 / 1550 - Physical Exam Oriented: Normal Eyes: Normal Ear: Normal Nose: Normal Throat: Normal Respiratory: Diminished Cardiovascular: Normal : Normal Auscultation: Bowel Sounds: Normal Tenderness: Normal Skin: Normal Musculoskeletal: Normal Psychiatric: Normal Mood Description: Calm Affect: Normal Speech Pattern: Clear, Appropriate - Laboratory and Diagnostics Result Diagrams: 08/07/21 05:22 08/07/21 05:22 Labs: 08/05/21 20:52 Sputum - Expectorated Sputum Sputum Culture - Preliminary 08/05/21 20:52 Sputum - Expectorated Sputum - Final Laboratory WBC 6.1 X10^3/uL (3.6-10.0) 08/07/21 05:22 RBC 3.82 X10^6/uL (3.5-5.4) 08/07/21 05:22 Hgb 11.9 g/dL (12.0-16.0) L 08/07/21 05:22 Hct 33.6 % (36.0-47.0) L 08/07/21 05:22 MCV 87.8 fL (80.0-100.0) 08/07/21 05:22 MCH 31.1 pg (27.0-34.0) 08/07/21 05:22 MCHC 35.4 g/dL (33.0-35.0) H 08/07/21 05:22 RDW 13.1 % (11.6-16.5) 08/07/21 05:22 Plt Count 420 X10^3/uL (150.0-450.0) 08/07/21 05:22 MPV 7.3 fL (7.4-11.0) L 08/07/21 05:22 Neut % (Auto) 71.2 % (42.0-75.0) 08/07/21 05:22 Lymph % (Auto) 10.5 % (21.0-51.0) L 08/07/21 05:22 [place] % (Auto) 13.8 % (0.0-13.0) H 08/07/21 05:22 Eos % (Auto) 3.4 % (0.9-2.9) H 08/07/21 05:22 Baso % (Auto) 1.1 % (0.2-1.0) H 08/07/21 05:22 Neut # (Auto) 4.4 x10^3/uL (2.2-4.8) 08/07/21 05:22 Lymph # (Auto) 0.6 X10^3/uL (1.3-2.9) L 08/07/21 05:22 [place] # (Auto) 0.8 x10^3/uL (0.3-0.8) 08/07/21 05:22 Eos # (Auto) 0.2 x10^3/uL (0.0-0.2) 08/07/21 05:22 Baso # (Auto) 0.1 X10^3/uL (0.0-0.1) 08/07/21 05:22 Absolute Nucleated RBC 0.1 /100WBC 08/07/21 05:22 PT 13.6 SECONDS (11.8-14.3) 08/05/21 09:00 INR Target Range - 08/05/21 09:00 INR 1.10 (0.8-1.3) 08/05/21 09:00 APTT 35.3 SECONDS (22.9-36.5) 08/05/21 09:00 PTT Comment - 08/05/21 09:00 Sample Site Rr 08/05/21 08:45 ABG pH 7.470 (7.35-7.45) H 08/05/21 08:45 ABG pCO2 30.0 mmHg (35.0-45.0) L 08/05/21 08:45 ABG pO2 54.0 mmHg (80.0-100.0) L 08/05/21 08:45 ABG HCO3 21.8 mmol/L (22-26) L 08/05/21 08:45 ABG O2 Saturation 90.0 % (90-100) 08/05/21 08:45 ABG Base Excess -1.0 mmol/L (-2.0-2.0) 08/05/21 08:45 Jose Juan Test Pos 08/05/21 08:45 A-a Gradient 58.0 mmHg 08/05/21 08:45 FiO2 21.0 08/05/21 08:45 Blood Gas Comments Wes well cb 08/05/21 08:45 Sodium 134 mmol/L (136-145) L 08/07/21 05:22 Corrected Sodium TNP 08/07/21 05:22 Potassium 4.4 mmol/L (3.5-5.1) 08/07/21 05:22 Chloride 99 mmol/L (98-107) 08/07/21 05:22 Carbon Dioxide 25.0 mmol/L (21-32) 08/07/21 05:22 BUN 6 mg/dL (7-18) L 08/07/21 05:22 Creatinine 0.85 mg/dL (0.55-1.02) 08/07/21 05:22 Est GFR (MDRD) Af Amer > 60 (>60) 08/07/21 05:22 Est GFR (MDRD) Non-Af > 60 (>60) 08/07/21 05:22 Glucose 106 mg/dL (65-99) H 08/07/21 05:22 Calcium 9.4 mg/dL (8.5-10.1) 08/07/21 05:22 Corrected Calcium 10.5 mg/dL (8.5-10.1) H 08/07/21 05:22 Magnesium 2.0 mg/dL (1.7-2.9) 08/05/21 09:00 Total Bilirubin 0.40 mg/dL (0.2-1.0) 08/07/21 05:22 AST 18 Units/L (15-37) 08/07/21 05:22 ALT 14 Units/L (12-78) 08/07/21 05:22 Alkaline Phosphatase 75 Units/L (46-116) 08/07/21 05:22 Creatine Kinase 49 Units/L (26-192) 08/06/21 15:04 CK-MB (CK-2) 1.2 ng/mL (0-4.0) 08/06/21 15:04 CK/CKMB % Calc 2.5 % (<4) 08/06/21 15:04 Troponin I < 0.02 ng/mL (0-1.5) 08/06/21 15:04 B-Natriuretic Peptide 61.6 pg/mL (0-79) 08/05/21 09:00 Total Protein 7.1 g/dL (6.4-8.2) 08/07/21 05:22 Albumin 2.6 g/dL (3.4-5.0) L 08/07/21 05:22 Globulin 4.5 g/dL (2.5-4.5) 08/07/21 05:22 Albumin/Globulin Ratio 0.6 Ratio (1.1-2.1) L 08/07/21 05:22 SARS-CoV-2 (PCR) Negative (NEGATIVE) 08/05/21 10:06 Influenza Type A (PCR) Negative (NEGATIVE) 08/05/21 10:06 Influenza Type B (PCR) Negative (NEGATIVE) 08/05/21 10:06 RSV (PCR) Negative (NEGATIVE) 08/05/21 10:06 - Plan (1) Pneumonia Status: Acute Qualifiers: Pneumonia type: due to unspecified organism Laterality: bilateral Lung location: unspecified part of lung Qualified Code(s): J18.9 - Pneumonia, unspecified organism Plan: FORTAZ 1G IV Q8H, LEVAQUIN 500MG IV DAILY, DUONEBS Q6H, TUSSIONEX 5ML PO Q12H PRN, ROBITUSSIN DM 10ML PO QID, VSL 2 CAPS PO DAILY, AND HER HOME MEDICATIONS OF ASPIRIN, CELEXA, LASIX, CLARITIN, TOPROL XL, SINGULAIR, DAILIRESP, ZOCOR, AND ALDACTONE WERE RESUMED. (2) COPD (chronic obstructive pulmonary disease) Status: Acute Qualifiers: COPD type: COPD with acute exacerbation Qualified Code(s): J44.1 - Chronic obstructive pulmonary disease with (acute) exacerbation (3) Hypoxia Status: Acute
[2021-08-07] MEDS: ZOCOR TAB 40 MG PO SCH (20:44)
[2021-08-07] MEDS: ASPIRIN EC 81 MG PO SCH (20:45)
[2021-08-07] MEDS: TUSSIONEX PENNKINETIC SUSP PO PRN (21:49)
[2021-08-08] MEDS: XOPENEX 1.25 MG/3 ML NEBULE NEB SCH ×4 (00:13→16:22)
[2021-08-08] MEDS: FORTAZ or TAZICEF VIAL INJ 1 G in NS 100 ML IV + SPIKE MINIBAG* 100 ML IV SCH ×3 (05:22→21:34)
[2021-08-08] MEDS: SOLU-Medrol 40 MG VIAL IVP SCH ×3 (05:22→21:35)
[2021-08-08 06:41] LABS: BASOPHILS % (AUTO) 0.3 % (0.2-1.0); HEMATOCRIT 32.4 % (36.0-47.0); HEMOGLOBIN 11.5 g/dL (12.0-16.0); LYMPHOCYTES # (AUTO) 0.3 X10^3/uL (1.3-2.9); LYMPHOCYTES % (AUTO) 4.6 % (21.0-51.0); MEAN CORPUSCULAR HEMOGLOBIN 31.1 pg (27.0-34.0); MEAN CORPUSCULAR HGB CONC 35.5 g/dL (33.0-35.0); MEAN CORPUSCULAR VOLUME 87.8 fL (80.0-100.0); MONOCYTES # (AUTO) 0.2 x10^3/uL (0.3-0.8); MONOCYTES % (AUTO) 3.3 % (0.0-13.0); NEUTROPHILS # (AUTO) 5.4 x10^3/uL (2.2-4.8); NEUTROPHILS % (AUTO) 91.8 % (42.0-75.0); PLATELET COUNT 405 X10^3/uL (150.0-450.0); RED BLOOD COUNT 3.69 X10^6/uL (3.5-5.4); WHITE BLOOD COUNT 5.9 X10^3/uL (3.6-10.0)
[2021-08-08 06:51] LABS: ALANINE AMINOTRANSFERASE 16 Units/L (12-78); ALBUMIN 2.4 g/dL (3.4-5.0); ALKALINE PHOSPHATASE 71 Units/L (46-116); ASPARTATE AMINO TRANSFERASE 19 Units/L (15-37); BLOOD UREA NITROGEN 17 mg/dL (7-18); CALCIUM 9.5 mg/dL (8.5-10.1); CARBON DIOXIDE 24.6 mmol/L (21-32); CHLORIDE 101 mmol/L (98-107); COR CA(FOR HYPOALB) 10.8 mg/dL (8.5-10.1); COR NA(FOR HYPERGLY) 136 mmol/L (136-145); CREATININE 0.77 mg/dL (0.55-1.02); SODIUM 135 mmol/L (136-145); eGFR NON BLACK RACES > 60 (>60)
--- NOTE | 2021-08-08 07:12 | RAD ---
HISTORYSOBSTUDYCHEST, 1 [id number]/28/2021.TECHNIQUEAP view of the chestFINDINGSCardiac and mediastinal contours are within normal limits. Severe COPD with similar appearing airspace and interstitial opacities to prior. Blunted costophrenic sulci. No pneumothorax.IMPRESSIONNo significant change.Electronically signed by: Tadeo Chavez (Aug 08, 2021 07:10:12)
[2021-08-08 07:24] LABS: BAND NEUTROPHILS % 2 % (0-10)
[2021-08-08 07:25] LABS: PLATELET MORPHOLOGY COMMENT NORMAL (NORMAL)
[2021-08-08] MEDS: CELEXA PO SCH (09:40)
[2021-08-08] MEDS: VSL#3 PO SCH (09:42)
[2021-08-08] MEDS: ROBITUSSIN DM PO SCH ×4 (09:42→21:35)
[2021-08-08] MEDS: TOPROL XL PO SCH (09:43)
[2021-08-08] MEDS: LEVAQUIN PREMIX IV 500 MG 500 MG/100 ML BAG IV SCH (09:43)
[2021-08-08] MEDS: ALDACTONE TAB 25 MG PO SCH (09:43)
[2021-08-08] MEDS: CLARITIN PO SCH (09:44)
[2021-08-08] MEDS: SINGULAIR TAB 10 MG PO SCH (09:45)
[2021-08-08] MEDS: DALIRESP PO SCH (09:45)
[2021-08-08] MEDS ORDERED: NS 100 ML IV 100 ML ONE (09:58)
[2021-08-08] MEDS: LOVENOX INJ 40 MG SYR SC SCH (10:04)
--- NOTE | 2021-08-08 10:17 | PCM.PROG ---
Progress Note - Progress Note for Day of Date of Exam: 08/08/21 - Subjective Subjective: WAS ADMITTED FOR TREATMENT OF COPD EXACERBATION, PNEUMONIA, AND HYPOXIA. TODAY, SHE IS ALERT AND ORIENTED, SITTING UP IN BED ON MORNING ROUNDS. SHE CONTINUES WITH COMPLAINTS OF SHORTNESS OF BREATH TODAY. NURSING STAFF REPORTS THAT HER OXYGEN SATURATIONS DROP TO THE 80s ON AMBULATION. HEART HEARTRATE ALSO INCREASES TO THE 120s-130s. ON EXAMINATION, HEART IS REGULAR IN RATE AND RHYTHM. BILATERAL LUNGS ARE NOTED WITH SCATTERED WHEEZING THROUGHOUT. ABDOMEN IS ROUND, SOFT, AND NON-TENDER WITH NORMAL BOWEL SOUNDS NOTED IN ALL QUADRANTS. HER VITALS THIS MORNING ARE: 98.1-95-21-90%-123/56. LABS WERE OBTAINED. ABNORMAL LAB VALUES INCLUDE THE FOLLOWING: HGB 11.5, HCT 32.4, SODIUM 135, GLUCOSE 150, ALBUMIN 2.4, GLOBULIN 4.6. CARDIAC ENZYMES ARE WITHIN NORMAL LIMITS. BLOOD AND SPUTUM CULTURES ARE PENDING. 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 Superimposed alveolar infiltrates right upper lobe, right lower lobe and peripherally in the left lung unchanged. SHE IS CURRENTLY RECEIVING FORTAZ 1G IV Q8H, LEVAQUIN 500MG IV DAILY, SOLU-MEDROL 40MG IV Q8H, DUONEBS Q6H, TUSSIONEX 5ML PO Q12H PRN, ROBITUSSIN DM 10ML PO QID, VSL 2 CAPS PO DAILY, AND HER HOME MEDICATIONS OF ASPIRIN, CELEXA, LASIX, CLARITIN, TOPROL XL, SINGULAIR, DAILIRESP, ZOCOR, AND ALDACTONE WERE RESUMED. WE WILL CONTINUE WITH CURRENT PLAN OF CARE TODAY. OTHERWISE, WE WILL FOLLOW UP WITH AM LABS AND CHEST XRAY AND CONTINUE TO MONITOR. TIME SPENT ON CLINICAL ASSESSMENT, REVIEWING LABS AND IMAGING, DECISION MAKING, AND DOCUMENTATION GREATER THAN 45 MINUTES. - Past Medical Family Social History Past Med/Fam/Surg Hx: No changes since H&P Allergies: Allergies iodine Adverse Reaction (Verified 08/05/21 08:28) - Review of Systems ROS: No change since H&P - Vital Signs and I&O's Vital Signs: Temperature 98.1 F Pulse Rate [Left Radial] 95 Pulse Rate 129 Respiratory Rate 21 Blood Pressure [Right Arm] 123/56 Blood Pressure 116/57 O2 Sat by Pulse Oximetry 90 Intake and Output: Intake & Output 08/05/21 08/06/21 08/07/21 08/08/21 11:59 11:59 11:59 11:59 Intake Total 1662 / 1662 1550 / 1550 3912 / 3912 Balance 1662 / 1662 1550 / 1550 3912 / 3912 - Physical Exam Oriented: Normal Eyes: Normal Ear: Normal Nose: Normal Throat: Normal Respiratory: Diminished Cardiovascular: Normal : Normal Auscultation: Bowel Sounds: Normal Tenderness: Normal Skin: Normal Musculoskeletal: Normal Psychiatric: Normal Mood Description: Calm Affect: Normal Speech Pattern: Clear, Appropriate - Laboratory and Diagnostics Result Diagrams: 08/08/21 06:02 08/08/21 06:02 Labs: 08/05/21 20:52 Sputum - Expectorated Sputum Sputum Culture - Final 08/05/21 20:52 Sputum - Expectorated Sputum - Final 08/05/21 09:00 Blood Blood Culture - Preliminary 08/05/21 08:50 Blood Blood Culture - Preliminary Laboratory WBC 5.9 X10^3/uL (3.6-10.0) 08/08/21 06:02 RBC 3.69 X10^6/uL (3.5-5.4) 08/08/21 06:02 Hgb 11.5 g/dL (12.0-16.0) L 08/08/21 06:02 Hct 32.4 % (36.0-47.0) L 08/08/21 06:02 MCV 87.8 fL (80.0-100.0) 08/08/21 06:02 MCH 31.1 pg (27.0-34.0) 08/08/21 06:02 MCHC 35.5 g/dL (33.0-35.0) H 08/08/21 06:02 RDW 13.0 % (11.6-16.5) 08/08/21 06:02 Plt Count 405 X10^3/uL (150.0-450.0) 08/08/21 06:02 Plt Count Comment Adequate (ADEQUATE) 08/08/21 06:02 MPV 7.0 fL (7.4-11.0) L 08/08/21 06:02 Neut % (Auto) 91.8 % (42.0-75.0) H 08/08/21 06:02 Lymph % (Auto) 4.6 % (21.0-51.0) L 08/08/21 06:02 [place] % (Auto) 3.3 % (0.0-13.0) 08/08/21 06:02 Eos % (Auto) 0.0 % (0.9-2.9) L 08/08/21 06:02 Baso % (Auto) 0.3 % (0.2-1.0) 08/08/21 06:02 Neut # (Auto) 5.4 x10^3/uL (2.2-4.8) H 08/08/21 06:02 Lymph # (Auto) 0.3 X10^3/uL (1.3-2.9) L 08/08/21 06:02 [place] # (Auto) 0.2 x10^3/uL (0.3-0.8) L 08/08/21 06:02 Eos # (Auto) 0.0 x10^3/uL (0.0-0.2) 08/08/21 06:02 Baso # (Auto) 0.0 X10^3/uL (0.0-0.1) 08/08/21 06:02 Absolute Nucleated RBC 0.0 /100WBC 08/08/21 06:02 Total Counted 100 08/08/21 06:02 Neutrophils % (Manual) 91 % (39-76) H 08/08/21 06:02 Band Neutrophils % 2 % (0-10) 08/08/21 06:02 Lymphocytes % (Manual) 4 % (13-43) L 08/08/21 06:02 Monocytes % (Manual) 3 % (4-9) L 08/08/21 06:02 Plt Morphology Comment Normal (NORMAL) 08/08/21 06:02 RBC Morphology Normal (NORMAL) 08/08/21 06:02 PT 13.6 SECONDS (11.8-14.3) 08/05/21 09:00 INR Target Range - 08/05/21 09:00 INR 1.10 (0.8-1.3) 08/05/21 09:00 APTT 35.3 SECONDS (22.9-36.5) 08/05/21 09:00 PTT Comment - 08/05/21 09:00 Sample Site Rr 08/05/21 08:45 ABG pH 7.470 (7.35-7.45) H 08/05/21 08:45 ABG pCO2 30.0 mmHg (35.0-45.0) L 08/05/21 08:45 ABG pO2 54.0 mmHg (80.0-100.0) L 08/05/21 08:45 ABG HCO3 21.8 mmol/L (22-26) L 08/05/21 08:45 ABG O2 Saturation 90.0 % (90-100) 08/05/21 08:45 ABG Base Excess -1.0 mmol/L (-2.0-2.0) 08/05/21 08:45 Jose Juan Test Pos 08/05/21 08:45 A-a Gradient 58.0 mmHg 08/05/21 08:45 FiO2 21.0 08/05/21 08:45 Blood Gas Comments Wes well cb 08/05/21 08:45 Sodium 135 mmol/L (136-145) L 08/08/21 06:02 Corrected Sodium 136 mmol/L (136-145) 08/08/21 06:02 Potassium 4.6 mmol/L (3.5-5.1) 08/08/21 06:02 Chloride 101 mmol/L (98-107) 08/08/21 06:02 Carbon Dioxide 24.6 mmol/L (21-32) 08/08/21 06:02 BUN 17 mg/dL (7-18) 08/08/21 06:02 Creatinine 0.77 mg/dL (0.55-1.02) 08/08/21 06:02 Est GFR (MDRD) Af Amer > 60 (>60) 08/08/21 06:02 Est GFR (MDRD) Non-Af > 60 (>60) 08/08/21 06:02 Glucose 150 mg/dL (65-99) H 08/08/21 06:02 Calcium 9.5 mg/dL (8.5-10.1) 08/08/21 06:02 Corrected Calcium 10.8 mg/dL (8.5-10.1) H 08/08/21 06:02 Magnesium 2.0 mg/dL (1.7-2.9) 08/05/21 09:00 Total Bilirubin 0.30 mg/dL (0.2-1.0) 08/08/21 06:02 AST 19 Units/L (15-37) 08/08/21 06:02 ALT 16 Units/L (12-78) 08/08/21 06:02 Alkaline Phosphatase 71 Units/L (46-116) 08/08/21 06:02 Creatine Kinase 49 Units/L (26-192) 08/06/21 15:04 CK-MB (CK-2) 1.2 ng/mL (0-4.0) 08/06/21 15:04 CK/CKMB % Calc 2.5 % (<4) 08/06/21 15:04 Troponin I < 0.02 ng/mL (0-1.5) 08/06/21 15:04 B-Natriuretic Peptide 61.6 pg/mL (0-79) 08/05/21 09:00 Total Protein 7.0 g/dL (6.4-8.2) 08/08/21 06:02 Albumin 2.4 g/dL (3.4-5.0) L 08/08/21 06:02 Globulin 4.6 g/dL (2.5-4.5) H 08/08/21 06:02 Albumin/Globulin Ratio 0.5 Ratio (1.1-2.1) L 08/08/21 06:02 SARS-CoV-2 (PCR) Negative (NEGATIVE) 08/05/21 10:06 Influenza Type A (PCR) Negative (NEGATIVE) 08/05/21 10:06 Influenza Type B (PCR) Negative (NEGATIVE) 08/05/21 10:06 RSV (PCR) Negative (NEGATIVE) 08/05/21 10:06 - Plan (1) Pneumonia Status: Acute Qualifiers: Pneumonia type: due to unspecified organism Laterality: bilateral Lung location: unspecified part of lung Qualified Code(s): J18.9 - Pneumonia, unspecified organism Plan: FORTAZ 1G IV Q8H, LEVAQUIN 500MG IV DAILY, DUONEBS Q6H, TUSSIONEX 5ML PO Q12H PRN, ROBITUSSIN DM 10ML PO QID, VSL 2 CAPS PO DAILY, AND HER HOME MEDICATIONS OF ASPIRIN, CELEXA, LASIX, CLARITIN, TOPROL XL, SINGULAIR, ADALBERTO LIRESP, ZOCOR, AND ALDACTONE WERE RESUMED. (2) COPD (chronic obstructive pulmonary disease) Status: Acute Qualifiers: COPD type: COPD with acute exacerbation Qualified Code(s): J44.1 - Chronic obstructive pulmonary disease with (acute) exacerbation (3) Hypoxia Status: Acute
[2021-08-08] MEDS: ASPIRIN EC 81 MG PO SCH (21:36)
[2021-08-08] MEDS: ZOCOR TAB 40 MG PO SCH (21:36)
[2021-08-09] MEDS: XOPENEX 1.25 MG/3 ML NEBULE NEB SCH ×3 (00:13→12:00)
[2021-08-09] MEDS: FORTAZ or TAZICEF VIAL INJ 1 G in NS 100 ML IV + SPIKE MINIBAG* 100 ML IV SCH (05:26)
[2021-08-09] MEDS: SOLU-Medrol 40 MG VIAL IVP SCH (05:27)
--- NOTE | 2021-08-09 05:44 | RAD ---
PROCEDURE: Chest X-ray 1 View .HISTORY: SHORTNESS OF BREATH; COPD; PNEUMONIA .TECHNIQUE: AP portable done at 4:49 a.m..COMPARISON: 08/08/2021.TECHNICAL QUALITY: Satisfactory .FINDINGS:Unchanged micro cardia related to patient's COPD. No other abnormality involving mediastinum.Normal central vascularity.Continued pneumonia right upper lobe abutting the minor fissure. Emphysematous changes diffusely. No pleural fluid or pneumothorax.IMPRESSION:1. Unchanged right upper lobe pneumonia.2. COPD.Electronically signed by: Kevin Taylor (Aug 09, 2021 05:42:36)
[2021-08-09 06:32] LABS: BASOPHILS % (AUTO) 0.1 % (0.2-1.0); HEMATOCRIT 34.2 % (36.0-47.0); HEMOGLOBIN 12.1 g/dL (12.0-16.0); LYMPHOCYTES # (AUTO) 0.3 X10^3/uL (1.3-2.9); LYMPHOCYTES % (AUTO) 3.3 % (21.0-51.0); MEAN CORPUSCULAR HGB CONC 35.3 g/dL (33.0-35.0); MEAN CORPUSCULAR VOLUME 87.8 fL (80.0-100.0); MEAN PLATELET VOLUME 6.8 fL (7.4-11.0); MONOCYTES # (AUTO) 0.4 x10^3/uL (0.3-0.8); MONOCYTES % (AUTO) 3.8 % (0.0-13.0); NEUTROPHILS # (AUTO) 8.9 x10^3/uL (2.2-4.8); NEUTROPHILS % (AUTO) 92.8 % (42.0-75.0); PLATELET COUNT 462 X10^3/uL (150.0-450.0); RED BLOOD COUNT 3.89 X10^6/uL (3.5-5.4); RED CELL DISTRIBUTION WIDTH 12.9 % (11.6-16.5); WHITE BLOOD COUNT 9.6 X10^3/uL (3.6-10.0)
[2021-08-09 06:48] LABS: ALANINE AMINOTRANSFERASE 20 Units/L (12-78); ALBUMIN 2.4 g/dL (3.4-5.0); ALKALINE PHOSPHATASE 64 Units/L (46-116); ASPARTATE AMINO TRANSFERASE 27 Units/L (15-37); BLOOD UREA NITROGEN 17 mg/dL (7-18); CALCIUM 9.5 mg/dL (8.5-10.1); CARBON DIOXIDE 26.9 mmol/L (21-32); CHLORIDE 103 mmol/L (98-107); COR CA(FOR HYPOALB) 10.8 mg/dL (8.5-10.1); COR NA(FOR HYPERGLY) 137 mmol/L (136-145); CREATININE 0.78 mg/dL (0.55-1.02); SODIUM 136 mmol/L (136-145); TOTAL PROTEIN 6.7 g/dL (6.4-8.2); eGFR NON BLACK RACES > 60 (>60)
[2021-08-09 07:10] LABS: BAND NEUTROPHILS % 2 % (0-10)
[2021-08-09 07:11] LABS: PLATELET MORPHOLOGY COMMENT NORMAL (NORMAL)
[2021-08-09] MEDS: LEVAQUIN PREMIX IV 500 MG 500 MG/100 ML BAG IV SCH (09:25)
[2021-08-09] MEDS: LOVENOX INJ 40 MG SYR SC SCH (09:26)
[2021-08-09] MEDS: VSL#3 PO SCH (09:26)
[2021-08-09] MEDS: ROBITUSSIN DM PO SCH (09:27)
[2021-08-09] MEDS: SINGULAIR TAB 10 MG PO SCH (09:27)
[2021-08-09] MEDS: TOPROL XL PO SCH (09:27)
[2021-08-09] MEDS: DALIRESP PO SCH (09:27)
[2021-08-09] MEDS: CLARITIN PO SCH (09:28)
[2021-08-09] MEDS: ALDACTONE TAB 25 MG PO SCH (09:28)
[2021-08-09] MEDS: CELEXA PO SCH (09:28)
[2021-08-09] MEDS ORDERED: NS 100 ML IV 100 ML ONE (09:43)
--- NOTE | 2021-08-09 11:59 | W.DIS.FURT ---
Summary of Discharge Admission Diagnosis Patient Problems (Updated 08/05/21 @ 12:22 by Blayne Guerra) Pneumonia (Acute) J18.9 COPD (chronic obstructive pulmonary disease) (Acute) J44.9 Hypoxia (Acute) R09.02 Vital Signs: Vital Signs (72 hours) 08/06/21 12:00 08/06/21 13:10 08/06/21 16:00 Temperature 97.9 F 97.8 F Pulse Rate 81 Pulse Rate [Left Radial] 128 H 110 H Pulse Rate [Radial] Respiratory Rate 26 H 22 Blood Pressure [Right Arm] 113/61 114/58 O2 Sat by Pulse Oximetry 90 L 96 90 L 08/06/21 20:00 08/06/21 20:15 08/07/21 00:00 Temperature 98.9 F 98.3 F Pulse Rate 133 H Pulse Rate [Left Radial] 119 H 107 H Pulse Rate [Radial] Respiratory Rate 24 21 Blood Pressure [Right Arm] 137/71 121/70 O2 Sat by Pulse Oximetry 91 L 93 L 92 L 08/07/21 00:05 08/07/21 04:00 08/07/21 05:30 Temperature 98.2 F Pulse Rate 122 H 129 H Pulse Rate [Left Radial] 114 H Pulse Rate [Radial] Respiratory Rate 23 Blood Pressure [Right Arm] 132/69 O2 Sat by Pulse Oximetry 94 L 91 L 93 L 08/07/21 08:00 08/07/21 11:42 08/07/21 16:00 Temperature 98.1 F 98.9 F 98.7 F Pulse Rate Pulse Rate [Left Radial] 120 H 102 H 102 H Pulse Rate [Radial] Respiratory Rate 20 20 20 Blood Pressure [Right Arm] 117/65 116/63 110/60 O2 Sat by Pulse Oximetry 91 L 96 91 L 08/07/21 20:00 08/08/21 00:00 08/08/21 00:13 Temperature 99 F 98.2 F Pulse Rate Pulse Rate [Left Radial] 98 H 102 H Pulse Rate [Radial] Respiratory Rate 20 21 Blood Pressure [Right Arm] 116/70 108/58 O2 Sat by Pulse Oximetry 100 94 L 94 L 08/08/21 04:00 08/08/21 07:27 08/08/21 12:00 Temperature 98.1 F 98.1 F 97.7 F Pulse Rate Pulse Rate [Left Radial] 100 H 95 H 91 H Pulse Rate [Radial] Respiratory Rate 19 21 20 Blood Pressure [Right Arm] 115/71 123/56 123/62 O2 Sat by Pulse Oximetry 91 L 90 L 95 08/08/21 15:29 08/08/21 20:00 08/09/21 00:00 Temperature 98.2 F 98.0 F 97.2 F L Pulse Rate Pulse Rate [Left Radial] 101 H Pulse Rate [Radial] 100 H 95 H Respiratory Rate 20 24 21 Blood Pressure [Right Arm] 116/55 131/59 156/72 O2 Sat by Pulse Oximetry 94 L 97 99 08/09/21 04:00 08/09/21 08:00 Temperature 97.6 F 97.8 F Pulse Rate Pulse Rate [Left Radial] Pulse Rate [Radial] 67 104 H Respiratory Rate 23 20 Blood Pressure [Right Arm] 134/66 121/61 O2 Sat by Pulse Oximetry 94 L 95 Labs: Laboratory Last Values WBC 9.6 X10^3/uL (3.6-10.0) 08/09/21 06:08 RBC 3.89 X10^6/uL (3.5-5.4) 08/09/21 06:08 Hgb 12.1 g/dL (12.0-16.0) 08/09/21 06:08 Hct 34.2 % (36.0-47.0) L 08/09/21 06:08 MCV 87.8 fL (80.0-100.0) 08/09/21 06:08 MCH 31.0 pg (27.0-34.0) 08/09/21 06:08 MCHC 35.3 g/dL (33.0-35.0) H 08/09/21 06:08 RDW 12.9 % (11.6-16.5) 08/09/21 06:08 Plt Count 462 X10^3/uL (150.0-450.0) H 08/09/21 06:08 Plt Count Comment Increased (ADEQUATE) A 08/09/21 06:08 MPV 6.8 fL (7.4-11.0) L 08/09/21 06:08 Neut % (Auto) 92.8 % (42.0-75.0) H 08/09/21 06:08 Lymph % (Auto) 3.3 % (21.0-51.0) L 08/09/21 06:08 [place] % (Auto) 3.8 % (0.0-13.0) 08/09/21 06:08 Eos % (Auto) 0.0 % (0.9-2.9) L 08/09/21 06:08 Baso % (Auto) 0.1 % (0.2-1.0) L 08/09/21 06:08 Neut # (Auto) 8.9 x10^3/uL (2.2-4.8) H 08/09/21 06:08 Lymph # (Auto) 0.3 X10^3/uL (1.3-2.9) L 08/09/21 06:08 [place] # (Auto) 0.4 x10^3/uL (0.3-0.8) 08/09/21 06:08 Eos # (Auto) 0.0 x10^3/uL (0.0-0.2) 08/09/21 06:08 Baso # (Auto) 0.0 X10^3/uL (0.0-0.1) 08/09/21 06:08 Absolute Nucleated RBC 0.0 /100WBC 08/09/21 06:08 Total Counted 100 08/09/21 06:08 Neutrophils % (Manual) 91 % (39-76) H 08/09/21 06:08 Band Neutrophils % 2 % (0-10) 08/09/21 06:08 Lymphocytes % (Manual) 2 % (13-43) L 08/09/21 06:08 Monocytes % (Manual) 5 % (4-9) 08/09/21 06:08 Plt Morphology Comment Normal (NORMAL) 08/09/21 06:08 RBC Morphology Normal (NORMAL) 08/09/21 06:08 PT 13.6 SECONDS (11.8-14.3) 08/05/21 09:00 INR Target Range - 08/05/21 09:00 INR 1.10 (0.8-1.3) 08/05/21 09:00 APTT 35.3 SECONDS (22.9-36.5) 08/05/21 09:00 PTT Comment - 08/05/21 09:00 Sample Site Rr 08/05/21 08:45 ABG pH 7.470 (7.35-7.45) H 08/05/21 08:45 ABG pCO2 30.0 mmHg (35.0-45.0) L 08/05/21 08:45 ABG pO2 54.0 mmHg (80.0-100.0) L 08/05/21 08:45 ABG HCO3 21.8 mmol/L (22-26) L 08/05/21 08:45 ABG O2 Saturation 90.0 % (90-100) 08/05/21 08:45 ABG Base Excess -1.0 mmol/L (-2.0-2.0) 08/05/21 08:45 Jose Juan Test Pos 08/05/21 08:45 A-a Gradient 58.0 mmHg 08/05/21 08:45 FiO2 21.0 08/05/21 08:45 Blood Gas Comments Wes well cb 08/05/21 08:45 Sodium 136 mmol/L (136-145) 08/09/21 06:08 Corrected Sodium 137 mmol/L (136-145) 08/09/21 06:08 Potassium 4.8 mmol/L (3.5-5.1) 08/09/21 06:08 Chloride 103 mmol/L (98-107) 08/09/21 06:08 Carbon Dioxide 26.9 mmol/L (21-32) 08/09/21 06:08 BUN 17 mg/dL (7-18) 08/09/21 06:08 Creatinine 0.78 mg/dL (0.55-1.02) 08/09/21 06:08 Est GFR (MDRD) Af Amer > 60 (>60) 08/09/21 06:08 Est GFR (MDRD) Non-Af > 60 (>60) 08/09/21 06:08 Glucose 124 mg/dL (65-99) H 08/09/21 06:08 Calcium 9.5 mg/dL (8.5-10.1) 08/09/21 06:08 Corrected Calcium 10.8 mg/dL (8.5-10.1) H 08/09/21 06:08 Magnesium 2.0 mg/dL (1.7-2.9) 08/05/21 09:00 Total Bilirubin 0.20 mg/dL (0.2-1.0) 08/09/21 06:08 AST 27 Units/L (15-37) 08/09/21 06:08 ALT 20 Units/L (12-78) 08/09/21 06:08 Alkaline Phosphatase 64 Units/L (46-116) 08/09/21 06:08 Creatine Kinase 49 Units/L (26-192) 08/06/21 15:04 CK-MB (CK-2) 1.2 ng/mL (0-4.0) 08/06/21 15:04 CK/CKMB % Calc 2.5 % (<4) 08/06/21 15:04 Troponin I < 0.02 ng/mL (0-1.5) 08/06/21 15:04 B-Natriuretic Peptide 61.6 pg/mL (0-79) 08/05/21 09:00 Total Protein 6.7 g/dL (6.4-8.2) 08/09/21 06:08 Albumin 2.4 g/dL (3.4-5.0) L 08/09/21 06:08 Globulin 4.3 g/dL (2.5-4.5) 08/09/21 06:08 Albumin/Globulin Ratio 0.6 Ratio (1.1-2.1) L 08/09/21 06:08 SARS-CoV-2 (PCR) Negative (NEGATIVE) 08/05/21 10:06 Influenza Type A (PCR) Negative (NEGATIVE) 08/05/21 10:06 Influenza Type B (PCR) Negative (NEGATIVE) 08/05/21 10:06 RSV (PCR) Negative (NEGATIVE) 08/05/21 10:06 Reason For Visit: PNEUMONIA FAILED OUTPATIENT,COPD Discharge Diagnosis All Active Problems (Updated 08/05/21 @ 12:22 by Blayne Guerra) Pneumonia (Acute) COPD (chronic obstructive pulmonary disease) (Acute) Hypoxia (Acute) Plan of Treatment: Continue with present treatment and follow up plan. Pt is to keep follow up appointment as instructed and take medications as ordered. Discharge Medications Discharge Medications: iodine Adverse Reaction (Verified 08/05/21 08:28) CONTINUE taking the following medications Daliresp 500 mcg PO DAILY 08/05/21 [History] aspirin 81 mg PO HS 08/05/21 [History] citalopram 10 mg PO DAILY 08/05/21 [History] furosemide 20 mg PO QAM PRN 08/05/21 [History] loratadine 10 mg PO DAILY 08/05/21 [History] metoprolol succinate 25 mg PO DAILY 08/05/21 [History] montelukast 10 mg PO QHS 08/05/21 [History] simvastatin 40 mg PO QHS 08/05/21 [History] spironolactone 25 mg PO DAILY 08/05/21 [History] New Prescriptions budesonide 1 ea NEB BIDRESP #50 ml 08/08/21 [Rx] ciprofloxacin HCl [Cipro] 500 mg PO BID #20 tab 08/08/21 [Rx] ipratropium-albuterol 1 neb NEB QID #50 each 08/08/21 [Rx] methylprednisolone [Medrol ([place])] See Rx Instructions .ROUTE .COMPLEX #1 ea 08/08/21 [Rx] Discharge Plan Discharge Plan Patient Disposition: 01 HOME, SELF-CARE Condition: Stable Health Concerns: Post Hospitalization: new medications and changes needed to prevent readmission or further decline. Pt educated and given instructions on all concerns. Care Plan Goals: Problem: Respiratory Complications Goal: Improved Uncomplicated Respiratory Status Instructions: Follow provided instructions. Follow up with primary physician as directed. Contact primary care physician or report to the closest Emergency Room if condition worsens. Plan of Treatment: Continue with present treatment and follow up plan. Pt is to keep follow up appointment as instructed and take medications as ordered. Prescription drug monitoring program results: PDMP was not reviewed Prescriptions: New ciprofloxacin HCl [Cipro] 500 mg Tablet 500 mg PO BID Qty: 20 RF: 0 budesonide 0.5 mg/2 mL Suspension For Nebulization 1 ea NEB BIDRESP Qty: 50 RF: 1 methylprednisolone [Medrol ([place])] 4 mg Tablets,Dose Pack See Rx Instructions .ROUTE .COMPLEX Qty: 1 RF: 0 ipratropium-albuterol [ipratropium-albuterol] 3 ML solution for nebulization 1 neb NEB QID Qty: 50 RF: 3 Continued citalopram 10 mg Tablet 10 mg PO DAILY RF: 0 aspirin 81 mg Tablet,Delayed Release (Dr/Ec) 81 mg PO HS RF: 0 spironolactone 25 mg Tablet 25 mg PO DAILY RF: 0 simvastatin 40 mg Tablet 40 mg PO QHS RF: 0 montelukast 10 mg Tablet 10 mg PO QHS RF: 0 furosemide 20 mg Tablet 20 mg PO QAM PRNRF: 0 metoprolol succinate 25 mg Tablet Extended Release 24 Hr 25 mg PO DAILY RF: 0 loratadine 10 mg Tablet 10 mg PO DAILY RF: 0 Daliresp 500 mcg Tablet 500 mcg PO DAILY RF: 0 Follow ups/Referrals Follow ups/Referrals: [facility] [Other] Gala Noland [Primary Care Provider] - 1 WEEK Instructions Instructions: Fall Prevention in the Home, Adult, [id number], How to Use an Incentive Spirometer, Sinus Tachycardia, Hypoxia, Heart Failure, Self Care, [id number], Chronic Obstructive Pulmonary Disease Exacerbation, [id number], Community-Acquired Pneumonia, Adult, [id number] Activity Restrictions/Additional Instructions: DIET TOLERATED. ACTIVITY TOLERATED. HOME OXYGEN Stand Alone Forms: Precautions for [facility], Patient Portal, Social Distancing
[2021-08-09 13:40] VITALS: BP 116/64
== END 2021-08-09 13:23 | disposition home or self-care (01) | DRG 194 ==
LOC: ER 08:37 → MED/SURG 08:37
PROVIDERS: ADMIT Internal Medicine; ATTEND Internal Medicine
DX: R06.02 Shortness of breath; Z20.822 Contact with and (suspected) exposure to COVID-19; E78.2 Mixed hyperlipidemia; I10 Essential (primary) hypertension; J44.1 Chronic obstructive pulmonary disease with (acute) exacerbation; J18.8 Other pneumonia, unspecified organism; R94.31 Abnormal electrocardiogram [ECG] [EKG]